=== PATIENT | male | born 1970 | race Two or more races ===

== ENCOUNTER 2022-06-24 18:28 | Emergency (ER) | payer OTHER ==
[~2022-06-24] VITALS: Ht 180.3 cm; Wt 86.2 kg
[2022-06-24] MEDS ORDERED: cloNIDine HCL 0.1 MG TAB ONE (19:42)
[2022-06-24] MEDS ORDERED: cloNIDine HCL 0.1 MG TAB PO ONE (19:45)
[2022-06-24 19:47] VITALS: BP 192/104
[2022-06-24] MEDS ORDERED: ALBUTEROL SULF 2.5 MG/0.5ML(0.5%) NEB SOLN NEB ONE (20:00)
[2022-06-24 21:06] LABS: Albumin 2.6 g/dL (3.4-5.0); BUN/Creatinine Ratio 14.1; Bilirubin, Total 0.3 mg/dL (0.2-1.0); Calcium 8.9 mg/dL (8.5-10.1); Magnesium 2.2 mg/dL (1.6-2.6); Potassium 3.9 mmol/L (3.5-5.1)
[2022-06-24 21:22] LABS: Basophils # (auto) 0.1 10 ^3/uL (0-0.2); Basophils % (auto) 0.8 % (0.0-2.0); Eosinophils # (auto) 0.1 10 ^3/uL (0-0.8); Eosinophils % (auto) 1.3 % (0.0-7.0); Hematocrit 36.8 % (41.0-53.0); Hemoglobin 12.4 g/dL (13.5-17.5); Lymphocytes # (auto) 2.5 10 ^3/uL (0.4-5.4); Lymphocytes % (auto) 22.6 % (10.0-50.0); Mean Corpuscular Hemoglobin 28.1 pg (28.0-32.0); Mean Corpuscular Hgb Conc. 33.7 g/dL (32.0-36.0); Mean Corpuscular Volume 83.4 fL (80.0-100.0); Monocytes # (auto) 0.6 10 ^3/uL (0-1.3); Monocytes % (auto) 5.2 % (0.0-12.0); Neutrophils # (auto) 7.6 10 ^3/uL (1.6-8.6); Neutrophils % (auto) 70.1 % (37.0-80.0); Nucleated Red Blood Cells % 0.1 %; Red Blood Cells 4.42 10^6/uL (4.5-5.90); Red Cell Distribution Width 13.7 % (11.8-14.3); White Blood Cell 10.8 10^3/uL (4.4-10.8)
[2022-06-24 21:53] LABS: INR 0.98 (0.9-1.15); Partial Thromboplastin Time 31.7 sec (24.6-33.4)
[2022-06-25] MEDS ORDERED: MORPHINE SULFATE 4 MG/ML SYR/VIAL IM ONE (00:45)
[2022-06-25] MEDS ORDERED: ONDANSETRON ODT 4 MG TAB PO ONE (00:45)
[2022-06-25] MEDS ORDERED: KETOROLAC TROMETH 60MG/2ML VIAL IM ONE (00:45)
[2022-06-25] MEDS ORDERED: IBUP600T27 PO (04:16)
[2022-06-25] MEDS ORDERED: GABA100C9 PO (04:16)
== END 2022-06-25 04:19 | disposition home or self-care (01) ==
LOC: ER 18:28
DX: M54.16 Radiculopathy, lumbar region (principal); R60.9 Edema, unspecified; F17.210 Nicotine dependence, cigarettes, uncomplicated; E11.22 Type 2 diabetes mellitus with diabetic chronic kidney disease; I12.9 Hypertensive chronic kidney disease with stage 1 through stage 4 chronic kidney disease, or unspecified chronic kidney disease; N18.9 Chronic kidney disease, unspecified
CPT/HCPCS: 36415; 71045; 74176; 80053; 83735; 84484; 85025; 85610; 85730; 93005; 94640